=== PATIENT | male | born 1950 | race Caucasian/White ===

== ENCOUNTER 2017-05-29 11:20 | Emergency (ER) | payer MEDICARE ==
[2017-05-29] MEDS ORDERED: NITROGLYCERIN 0.4 MG 25 EA TAB SL ONE ×2 (11:30→11:41)
--- NOTE | 2017-05-29 11:44 | ED.PDOC ---
History of Present Illness - General Chief Complaint: Cardiac Respiratory Arrest Stated Complaint: SOB/Dizzy Time Seen by Provider: 05/29/17 11:22 Source: patient, RN notes reviewed, Vital Signs reviewed, family - Exam Limitations: no limitations - History of Present Illness Initial Comments: Patient comes in to ER w/ c/o SOB, dizziness and near syncope. Reports he has been having chest tightness with fatigue, SOB and dizziness intermittently for the past 3 days. Symptoms today started @ ~07:00. He took NTG yesterday w/o improvement. He has a significant cardiac history with quadruple bypass 25 years ago and 9 cardiac stents since. Timing/Duration: 4-6 hours Severity: severe Improving Factors: rest Worsening Factors: movement Associated Symptoms: chest pain, diaphoresis, malaise, nausea/vomiting, shortness of breath, weakness Allergies/Adverse Reactions: Allergies NO KNOWN ALLERGY Allergy (Verified 06/29/13 17:34) Review of Systems - Review of Systems Constitutional: States: diaphoresis, malaise, weakness EENTM: States: no symptoms reported Respiratory: States: short of breath Cardiology: States: chest pain, palpitations, other - near syncope Gastrointestinal/Abdominal: States: nausea Genitourinary: States: no symptoms reported Musculoskeletal: States: no symptoms reported Neurological: States: other - dizziness All other Systems: No Change from Baseline Past Medical History (General) - Patient Medical History Hx Stroke: No Hx Cardiac Disorders: - CABG, cardiac stents (multiple) Hx Congestive Heart Failure: Yes Hx Hypertension: Yes Hx Diabetes: No Surgical History: appendectomy, coronary bypass surgery - Vaccination History Hx Influenza Vaccination: Yes - 2015 Hx Pneumococcal Vaccination: Yes - Social History Hx Tobacco Use: No Hx Chewing Tobacco Use: Yes Family Medical History - Family History Father Living Status: Hx Cardiac Disease: Yes Physical Exam - Physical Exam General Appearance: Anxious, Lethargic, Obvious distress, Ill Appearing Neck: supple, normal inspection Respiratory: chest non-tender, lungs clear, normal breath sounds, no respiratory distress, no accessory muscle use Cardiovascular/Chest: regular rate, rhythm, no gallop, no murmur Gastrointestinal/Abdominal: normal bowel sounds, non tender, soft, no organomegaly Extremity: normal inspection Neurologic: normal mood/affect, oriented x 3 Skin Exam: diaphoresis, pallor Progress - Progress Progress: 05/29/17 12:[address] Goel - Card Table Attendant. Recommended no anticoagulation. Feels it is most likely a posterior NM given the depression in V2-5. 05/29/17 13:04 Air evac arrived to transport patient and he coded and lost a pulse. ACLS was performed for 30 minutes with Epi 8 doses, Amiodirone 300mg, Atropine 1 dose and 4 shocks given. Intermittently in V-tach - final rhythm asystole. Patient was pronounced at 12:57pm. - EKG/XRAY/CT EKG: Sinus, ST elevation - III & aVR, ST depression - V2-V6 Departure - Departure Clinical Impression: Cardiac arrest STEMI (ST elevation myocardial infarction) Qualifiers: Involved coronary artery: other inferior wall coronary artery Qualified Code(s) : I21.19 - ST elevation (STEMI) myocardial infarction involving other coronary artery of inferior wall Time of Disposition: 13:07 Disposition: Condition: Serious Departure Forms: ED Discharge - Pt. Copy, Patient Portal Self Enrollment Referrals: LUANN REYNA [Primary Care Provider] - 1-2 Weeks Critical Care Note - Critical Care Note Total Time (mins): 60 - Care prior to cardiac arrest and during ACLS Transfer to Outside Facility - Transfer Information Accepting Provider:: Dr. King - [place] Accepting Facility: [facility] Reason for Transfer: required specialist not available - Card Table Attendant - interventional
[2017-05-29] MEDS ORDERED: ASPIRIN (CHEWABLE) 81 MG TAB ONE (11:45)
[2017-05-29] MEDS ORDERED: ONDANSETRON INJ 4 MG/2 ML VIAL ONE (11:51)
[2017-05-29] MEDS ORDERED: ONDANSETRON INJ 4 MG/2 ML VIAL IV ONE (11:56)
[2017-05-29] MEDS ORDERED: ASPIRIN (CHEWABLE) 81 MG TAB PO ONE (11:56)
[2017-05-29 12:01] VITALS: O2SAT 96
[2017-05-29 12:04] VITALS: BP 85/51; TEMP 96.4
[2017-05-29] MEDS ORDERED: SODIUM CHLORIDE 0.9% 1000ML 1,000 ML IVS ONE ×3 (12:08→13:04)
--- NOTE | 2017-05-29 12:12 | RAD ---
EXAM DESCRIPTION: Chest,1 View CLINICAL HISTORY: 66 years Male, Chest pain COMPARISON: 06/29/2013 IMPRESSION: The heart remains enlarged. There is mild central pulmonary vascular congestion. Median sternotomy wires and changes of prior cardiac surgery are demonstrated. Mild hazy densities in the inferior lung zones bilaterally, nonspecific but favored to be secondary to soft tissue attenuation. Mild CHF with interstitial edema is not totally excluded. No confluent airspace consolidation. Questionable trace left pleural effusion versus pleural thickening. No pneumothorax. No acute osseous abnormality. Electronically signed by: Shailesh Nolen MD 05/29/2017 12:11 PM CDT
[2017-05-29] MEDS ORDERED: EPINEPHrine INJ 0.1 MG/ML 10 ML SYG IV ONE ×2 (13:04)
[2017-05-29] MEDS ORDERED: ATROPINE 1 MG/10 ML SYG IV ONE (13:04)
[2017-05-29] MEDS ORDERED: AMIODARONE HCL 150 MG/3 ML VIAL IVPB ONE (13:04)
[2017-05-29] MEDS ORDERED: SODIUM CHLORIDE 0.9% 1000ML 2,000 ML ONE (18:19)
== END 2017-05-29 12:57 | disposition expired ==
LOC: ER 11:20
DX: I21.3 ST elevation (STEMI) myocardial infarction of unspecified site (principal); I46.2 Cardiac arrest due to underlying cardiac condition; I11.0 Hypertensive heart disease with heart failure; I50.9 Heart failure, unspecified; Z95.1 Presence of aortocoronary bypass graft; Z98.61 Coronary angioplasty status
CPT/HCPCS: 36415; 71010; 80053; 82550; 82553; 82948; 83735; 84484; 85025; 85610; 85730; J0282; J2405; J7030